=== PATIENT | female | born 1990 | race Caucasian/White ===

== ENCOUNTER 2017-12-12 09:52 | Outpatient (CLI) | payer MEDICAID ==
--- NOTE | 2017-12-12 10:59 | Non Stress Test Report ---
Non Stress Test Datetime Report Generated by CPN: 12/12/2017 10:59 DEMOGRAPHIC EGA NST: 40.2 INDICATION Indication for Study: Other Indication for Study (NST) Other: Repeat for GDM VITAL SIGNS Temperature - NST: 98.1 MONITORING Monitor Explained: Monitor Explained; Test Explained; Patient Verbalized Understanding Time on Monitor: 12/12/2017 10:07 Time off Monitor: 12/12/2017 10:42 NST Duration: 35 NST INTERVENTIONS NST Interventions: PO Hydration; Reposition Patient NST Interventions: PO Hydration; Reposition Patient Physician Notified NST: J. Fishman, CNM BABY A: [id number] BABY A Movement : Present Contraction Frequency : None traced FHR Baseline : 140 Accelerations : 15X15 Decelerations : None Variability : Moderate 6-25bpm NST Review: Meets Criteria for Reactive NST NST Review and Verified By : Chan Morales RN NST Results: Reactive NST REPORT Report Trigger: Send Report
== END 2017-12-12 10:59 | disposition home or self-care (01) ==
LOC: LC 09:52
PROVIDERS: ATTEND Obstetrics & Gynecology Gynecology
PROC: 4A1HXCZ Monitoring of Products of Conception, Cardiac Rate, External Approach (ICD-10-PCS; principal; 2017-12-12)
DX: O24.419 Gestational diabetes mellitus in pregnancy, unspecified control (principal); Z3A.40 40 weeks gestation of pregnancy
CPT/HCPCS: 59025